=== PATIENT | female | born 1995 | race Caucasian/White ===

== ENCOUNTER 2022-05-20 20:21 | Outpatient (CLI) | payer OTHER, SELFPAY ==
[2022-05-20 20:54] VITALS: BP 120/57; PULSE 90; RESP 16; TEMP 37
== END 2022-05-20 21:20 | disposition home or self-care (01) ==
LOC: ANHOBOP 20:28 → ANHOBPP 20:28
PROVIDERS: PCP Pediatrics; Visit Provider Advanced Practice Midwife
DX: O42.913 Preterm premature rupture of membranes, unspecified as to length of time between rupture and onset of labor, third trimester (principal); Z3A.29 29 weeks gestation of pregnancy
CPT/HCPCS: 59025; 84112; 99199

== ENCOUNTER 2024-08-22 18:27 | Emergency (ER) | payer OTHER, SELFPAY ==
[2024-08-22 18:28] VITALS: BP 112/89; PULSE 73; RESP 16; TEMP 36.8; O2SAT 96
--- OUTSIDE RECORDS SUMMARY | 2024-08-22 18:29 | XMS_ITS | Clinical Summary ---
Author Organization [facility] [employer] Address [address] [place] [address] Care Team Providers Care Amusement Park Ride Mechanic Name Role Phone Unavailable Primary Care Provider Unavailabl e Source Comments [facility] [employer],non-owned Affiliates and Associated Physician Practices is amultiple site organization consisting of ambulatory clinics and hospital sitesin [place], [place], [place] and [place]. This disclosure is being madepursuant to the Care Everywhere program and may not contain all information available regarding this patient. Last updated 18.[facility] [employer] Allergies No known active allergies Medications * Be aware that medications may not be up to date on this document. Alwaysverify current medications with the patient. desmopressin (DDAVP) 0.2 MG tablet Take 0.2 mg by mouth daily. Active albuterol (PROVENTIL; VENTOLIN) 90 MCG/ACT inhaler Inhale 2 Puffs by mouth every 6 hours as needed. Active ondansetron (ZOFRAN) 4 MG tabletIndicatio ns:Nausea and/or Vomiting in Take 4 mg by mouth every 6 hours as needed for Nausea/Vomitin g Reasons: Nausea and Vomiting in Active famotidine (PEPCID) 10 MG tablet Take 10 mg by mouth once daily Active acetaminophen CR (TYLENOL ARTHRITIS PAIN) 650 MG tablet Take 650 mg by mouth every 8 hours as needed for Pain Active Vit-Fe Fumarate-FA ( VITAMIN) 28-0.8 MG tablet Take 1 tablet by mouth once daily Active Active Problems Problem Noted Date Diagnosed Date Uterine contractions 04/05/2021 Supervision of high-risk of young prim igravida 12/06/2017 Hyperlipidemia 11/30/2010 Asthma 11/30/2010 Sleep apnea 11/30/2010 Obesity, morbid 11/30/2010 Family History Medical History Relation Name Comments Sleep Apnea Brother Heart Failure Father Hypertension Father Renal Disease Father Anesthesia Reaction Mother Asthma Mother Atrial Fibrillation Mother Heart Failure Mother Sarcoidosis Mother Sleep Apnea Mother Diabetes Paternal Grandfather Diabetes Paternal Grandmother Hypertension Paternal Grandmother Bleeding Disorders Neg Hx Cancer - Breast Neg Hx Cancer - Uterine Neg Hx Childhood Hearing Disorder Neg Hx Other - Defects Neg Hx Phlebitis/Blood Clot Neg Hx Relation Name Status Comments Brother Father Mother Paternal Grandfather Paternal Grandmother Social History Tobacco Use Types Packs/Day Years Used Date Smoking Tobacco: Every Day Cigarettes 0.5 9 Smokeless Tobacco: Never Tobacco Cessation:Ready to Q uit: Yes; Counseling Given: No Comments:3 cig per day, hoping to quit Alcohol Use Standard Drinks/Week Comments Not Currently 0 (1 standard drink = 0.6 oz pur e alcohol) Comments No Sex and Gender Information Value Date Recorded Sex Assigned at Not on file Legal Sex Female 7:07 AM INTELLIGENCE OFFICER BASIC Gender Identity Not on file Sexual Orientation Not on file Last Filed Vital Signs Vital Sign Reading Time Taken Comments Blood Pressure 124/77 04/09/2021 8:15 AM INTELLIGENCE OFFICER BASIC Pulse 61 04/08/2021 11:46 PM INTELLIGENCE OFFICER BASIC Temperature 36.9 C (98.4 F) 04/09/2021 8:15 AM INTELLIGENCE OFFICER BASIC Respiratory Rate 18 04/09/2021 8:15 AM INTELLIGENCE OFFICER BASIC Oxygen Saturation 100% 04/08/2021 11:46 PM INTELLIGENCE OFFICER BASIC Inhaled Oxygen Concentration - - Weight 92 kg (202 lb 12.8 oz) 04/05/2021 10:40 P M INTELLIGENCE OFFICER BASIC Height 162.6 cm (5' 4 ) 04/05/2021 9:19 PM INTELLIGENCE OFFICER BASIC Body Mass Index 34.81 04/05/2021 9:19 PM INTELLIGENCE OFFICER BASIC Plan of Treatment Health Maintenance Due Date Last Done Comments PAP SMEAR 1995 HIV SCREENING 2010 DTAP/TDAP/TD VACCINES (1 - Tdap) 2014 HEPATITIS B VACCINE (1 of 3 - 19+ 3-dose series) 2014 PNEUMOCOCCAL VACCINE (1 of 2 - PCV) 2014 COVID-19 VACCINE (1 - 2023-2 5 season) 2024 DEPRESSION SCREENING 05/06/2024 INFLUENZA VACCINE (Season Ended) 2025 03/06/2016, 01/26/2015, 02/22/2014 ZOSTER VACCINE (1 of 2) 2045 HEPATITIS C SCREENING Completed 04/06/2021 HIB VACCINE Aged Out No longer eligi ble based on patient's age to complete this topic HPV VACCINE Aged Out No longer eligi ble based on patient's age to complete this topic MENINGOCOCCAL (Group B) VACCINE SHARED DECISION-MAKING Aged Out No longer eligible based on patient's age to complete this topic MENINGOCOCCAL GROUPS A/C/Y/W VACCINE Aged Out No longer eligible b ased on patient's age to complete this topic Procedures Procedure Name Priority Date/Time Associated Diagnosis Comments HEPATITIS SCREEN ACUTE Routine 04/06/2021 8:29 AM INTELLIGENCE OFFICER BASIC Nausea and vomiting of , antepartum Supervision of high-risk of young primigravida Transaminitis from Last 3 Months or Most Recently Relevant to Health Maintenance Results * HEPATITIS SCREEN ACUTE (04/06/2021 8:29 AM INTELLIGENCE OFFICER BASIC) HAV Antibody IgM Non Reactive Non Reactive 04/06/2021 10:16 AM INTELLIGENCE OFFICER BASIC [facility] HBsAg Non Reactive Non Reactive 04/06/2021 10:16 AM INTELLIGENCE OFFICER BASIC [facility] HBc Antibody IgM Non Reactive Non Reactive 04/06/2021 10:16 AM [facility] HCV Antibody Screen Non Reactive Non Reactive 04/06/2021 10:16 AM [facility] Blood BLOOD SPECIMEN / Unknown Lab Venipuncture / Unknown 04/06/2021 8:29 AM INTELLIGENCE OFFICER BASIC 04/06/2021 8:35 AM INTELLIGENCE OFFICER BASIC Narrative [facility] - 04/06/2021 10:16 AM INTELLIGENCE OFFICER BASIC Non Reactive - Antibodies to Hepatitis C virus (HCV) were not detected, result does not exclude early acute HCV infection. us Taylor Adan MD LAB - CHEMISTRY ORDERABLES Final Result [facility] [address] [place] [address] from Last 3 Months or Most Recently Relevant to Health Maintenance Insurance [employer] MEDICA[employer] [place] Advance Directives * Full Code (Latest Code Status on File) Date Activated Date Inactivated Comments 04/05/2021 10:14 PM 04/09/2021 12:37 PM
--- OUTSIDE RECORDS SUMMARY | 2024-08-22 18:29 | XMS_ITS | Continuity of Care Document ---
Author Organization [facility] Address [address] [place] [address] Phone Care Team Providers Care Tire Room Supervisor Name Role Phone Steele OD, Fernando Unavailable Unavailable Procedures Procedure Date Eye Exam & Treatment Refraction Advance Directives Directive Yes / No Effective Date File Name No Information Encounters Encounter Description Practice Location Reason(s) For Visit Diagnoses Date Provider Providers Copied on Encounter [facility], [address], [place], [place], [id number], [place] tel:[phone] SEC [facility] No Information 0-200 9 Steele OD Fernando. [address] , [address], [place], [address], [place]. tel:[phone] Family History Family Member Type Diagnosis Age At Onset No Information Payers Payer name Insurance type Covered democrat ID Authoriza tion(s) Medicaid [facility] [id number] Social History Type Description Quantity Date Captured Comments Sex Female Smoking Status No Information Chief Complaint And Reason For Visit No Information Reason For Referral Reason For Referral No Information History Of Present Illness Encounter Date Complaint History Of Prese nt Illness No Information Functional Status Date Functional Assessmen t No Information Instructions Date Instruction Additional Infor mation No Information Assessments Type Assessment Date No Information Patient Care Teams Name Effective Dates (start - stop) Status Members No Information
--- OUTSIDE RECORDS SUMMARY | 2024-08-22 18:29 | XMS_ITS | Referral Summary ---
Author Organization [facility] Address [address] [place] [address] Care Team Providers Care Cryptanalyst Name Role Phone Unknown, Notinfile Primary Care Provider Unavail able Allergies No known active allergies Medications escitalopram (LEXAPRO) 10 mg tabletIndicatio ns:Anxiety with Depression Take 1 tablet (10 mg total) by mouth daily 30 tablet 6 3 Active oxyCODONE (ROXICODONE) 5 mg immediate release tabletIndicatio ns:Pain Take 1 tablet (5 mg total) by mouth every 4 (four) hours as needed for pain 20 tablet 3 Active acetaminophen (TYLENOL) 325 mg tablet Take 2 tablets (650 mg total) by mouth every 6 (six) hours as needed for pain 90 tablet 3 Active docusate sodium (COLACE) 100 mg capsuleIndicati ons:constipatio n,Stool Softener Take 1 capsule (100 mg total) by mouth 2 (two) times a day as needed for constipation 60 capsule 3 Active ibuprofen (ADVIL,MOTRIN) 600 mg tabletIndicatio ns:Cramps Take 1 tablet (600 mg total) by mouth every 6 (six) hours as needed for pain 90 tablet 3 Active Active Problems Problem Noted Date Diagnosed Date care following vaginal delivery 06/27 Overview (06/29/2022): # ID: Afebrile. No signs/symptoms of infection. COVID-19 test not indicated. # Heme: EBL 200 mL. Hemodynamically stable. # CV/Pulm: 2 MR pressures >4h apart thereby meeting criteria for gHTN. No antihypertensives needed at this time, continue to monitor. Enrolled in home BPmonitoring. # GI/: Tolerating PO. Voiding spontaneously. # Pain: Controlled with above regimen. #MDD: Continue home lexapro 10mg daily # Post DVT prophylaxis: The patient has the following MAJOR risk factors none and the following MINOR risk factors BMI 30-39, multiple gestation and parity >/=3. enoxaparin 40 mg daily ordered for VTE prophylaxis. # MOC: s/p BTL # MOF: # Disposition: Desires discharge home today Risk of labor in third trimester 023 Depression affecting 02/22/2022 Overview (06/12/2022): History: Patient states she has a history of depression, anxiety, and was diagnosed with PTSD just prior to . She was about to start medication but then was told she could not with . She notes that her depression is interfering with her ability to interact with her family. Previously counseled Current regimen: 06/12/2022 Restarting lexapro 10 mg daily Plan: Referral today to [facility] therapy and psych to establish care Close f/u for the remainder of and Reviewed risks of pp depression History of liver disease 02/22/2022 Overview (05/17/2022): In G3 had elevated LFTs at 32 weeks when she presented with concern for labor (was stably dilated at 4 cm). She had a complete work-up, which was negative. Specifically, acetaminophen level < 3, bile acids, 3.1, negative microsomal antibody, negative mitochondrial M2 antibody, negative smooth muscle antibody, negative KENNY. Blood pressures normal range. RUQ ultrasound WNL. Liver enzymes peaked at 373/190 and downtrended. She was discharged from the hospital and per her report, she had complete resolution of LFTs and went on to have a term delivery. Previously counseled Plan: [x] Baseline CMP Marijuana use during 02/21/2022 Overview (05/17/2022): Previously counseled, encouraged cessation Dichorionic diamniotic twin in second trimester 02/20/2022 Overview (06/14/2022): Patient with an ultrasound from outside hospital at 15 weeks that identified di- di twins. Handheld ultrasound today demonstrated twin IUP with distinctive dividing membrane. Previously counseled Plan: [x] specialized anatomy- confirmed timmy twins [x] genetic testing- low risk NIPT [x] baseline labs and A1c- 24 hour urine 228 (referred to nephrology by primary OB but pt has not yet seen- encouraged to schedule) scanned into media - ASA until 36 weeks - serial growths - weekly NSTs at 36 weeks - Delivery by 38 weeks Supervision of high-risk , second trime ster 02/20/2022 Overview (06/29/2022): [x] Full MFM [x] Blue Team -- [facility] as of 06/05 email sent to financial - bnw Referring Provider: Filiberto Raphael [phone] [] [employer] or Medicare Insurance [x] Dating Criteria: LMP 10/24/21 with ALEX 07/31/22 [x] Labs: Rh [A+], Ab [negative], Rubella [immune], HIV [non-reactive], HepBSAg [negative], RPR [non-reactive], Hep C [non-reactive], Varicella [positive], GC/CT [negative/negative] [x] Genetic Screenin/28 NIPT negative, AFP negative, CF requested 05/17 [x] CBC/Hgb 11.6/34.3/plt 319 [x] UCx: 02/01/22 negative [x] Pap: 02/02/22 NILM; HPV negative [x] LD ASA (if indicated) starting at 12 weeks: [] EPDS [ ]; [facility] referral (if indicated) 2nd Tri Labs: [x] Anatomy ultrasound: complete x2 [x] CBC/1hr gtt at 24-28wks: CBC: 10.1/32.3/338, 1hr gtt: 118 - done 05/17, faxed to Ijeoma's office, asked MARCELL[facility] Campbell for pt to get ferritin at next visit with them in 2 weeks [x] Flu Shot (Jan-Apr): 02/22/2022 MM [x] Tdap (27-36wks): 05/17/2022 MM [] COVID Vaccine: 3rd Tri Labs: [] CBC/HIV/RPR: ordered for [facility] [x] GBS: Negative 06/26/2022 [x] testing: weekly at 36 weeks- discussed and ordered for weekly BPPs Counseling [x] MOD: desires vaginal delivery, currently vertex/vertex- will schedule IOL at 38 weeks - scheduled for 07/15 at 9am, letter sent 06/13 - bnw [x] Place of delivery: [facility], [facility] as of 06/05 per primary office [] Last clinic visit SVE: [] IOL start agent: [] Epidural: [] Consents signed: [x] MOC: desires BTL, papers signed 05/17/2022 s/p counseling [x] Method of feeding: likely formula but after counseling considering breast [x] Cloth Edge Singer: discussed [x] PP Depression Discussed: discussed Reports bilateral lower extremity swelling with pruritis- likely normal but plan for CMP and bile acids- ordered Immunizations Immunization Administration Dates Next Due Influenza, Quadrivalent, Annmarie l Culture-based MDCK, Preservative Free, Antibiotic Free, Intramuscular 02/22/2022 Tdap 05/17/2022 Social History Tobacco Use Types Packs/Day Years Used Date Smoking Tobacco: Some Days Cigarettes Tobacco Cessation:Ready to Q uit: Not Asked; Counseling Given: Not Answered Social Connection and Isolat ion Panel [NHANES] Answer Date Recorded In a typical week, how many times do you talk on the phone with family, friends, or neighbors? More than three times a week 06/29/2022 How often do you get togethe r with friends or relatives? More than three times a week 06/29/2022 How often do you attend chur or mandaeism services? Never 06/29/2022 Do you belong to any clubs o r organizations such as evangelical groups, unions, fraternal or athletic groups, or school groups? No 06/29/2022 How often do you attend meet ings of the clubs or organizations you belong to? Never 06/29/2022 Are you , , di vorced, , never , or living with a partner? Living with partner 06/29/2022 AUDIT-C Answer Date Recorded Frequency of Alcohol Consumption Not on file 2022 Q2: How many drinks containi ng alcohol do you have on a typical day when you are drinking? Patient does not drink Frequency of Binge Drinking Not on file 10/2022 Overall Financial Resource Strain (CARDIA) Answe r Date Recorded How hard is it for you to pa y for the very basics like food, housing, medical care, and heating? Not very hard 06/29/2022 Hunger Vital Sign Answer Date Recorded Within the past 12 months, y ou worried that your food would run out before you got the money to buy more. Never true 06/29/19 23 Within the past 12 months, t he food you bought just didn't last and you didn't have money to get more. Never true 06/29/2022 PRAPARE - Transportation Answer Date Re corded In the past 12 months, has l ack of transportation kept you from medical appointments or from getting medications? Yes 06/07 In the past 12 months, has l ack of transportation kept you from meetings, work, or from getting things needed for daily living? No 06/29/2022 Housing Stability Vital Sign Answer Adam e Recorded In the last 12 months, was t here a time when you were not able to pay the mortgage or rent on time? No 06/29/2022 In the last 12 months, how many places have you lived? 0 06/29/2022 In the last 12 months, was t here a time when you did not have a steady place to sleep or slept in a halfway (including now)? No 06/29/2022 [place] Depression Scale Answer Date Recorded [place] Depression Scale Total 20 07/30/2022 The thought of harming myself has occurred to me . Never 07/30/2022 Personal Safety Answer Date Recorded Getting School Help Needed Denies 05/05 Comments No Sex and Gender Information Value Date Recorded Sex Assigned at Not on file Legal Sex Female 7:33 PM MIDLEVEL PROVIDER Gender Identity Female 06/07/2022 3:57 PM MIDLEVEL PROVIDER Sexual Orientation Bisexual 06/07/2022 3: 57 PM MIDLEVEL PROVIDER Last Filed Vital Signs Vital Sign Reading Time Taken Comments Blood Pressure 128/55 06/29/2022 10:55 AM MIDLEVEL PROVIDER Pulse 50 06/29/2022 7:45 AM MIDLEVEL PROVIDER Temperature 36.5 C (97.7 F) 06/29/2022 7:45 AM MIDLEVEL PROVIDER Respiratory Rate 16 06/29/2022 7:45 AM MIDLEVEL PROVIDER Oxygen Saturation 90% 06/29/2022 7:45 AM MIDLEVEL PROVIDER Inhaled Oxygen Concentration - - Weight 103.4 kg (228 lb) 06/26/2022 7:15 PM MIDLEVEL PROVIDER Height 165.1 cm (5' 5 ) 06/26/2022 7:15 PM MIDLEVEL PROVIDER Body Mass Index 37.94 06/26/2022 7:15 PM MIDLEVEL PROVIDER Plan of Treatment Not on file Insurance Advance Directives For more information, please contact: [phone] * Full Code (Latest Code Status on File) Date Activated Date Inactivated Comments 06/27/2022 1:13 PM 06/29/2022 5:12 PM * Full Code Date Activated Date Inactivated Comments 06/26/2022 6:40 PM 06/27/2022 1:13 PM Care Teams Cryptanalyst Relationship Specialty Start Date End Date Unknown, Notinfile PCP - General 06/05/22
--- OUTSIDE RECORDS SUMMARY | 2024-08-22 18:29 | XMS_ITS | Clinical Summary ---
Author Organization [facility] Address [address] [place] [address] Care Team Providers Care Mud Jack Nozzleman Name Role Phone Unknown, Notinfile Primary Care [...] financial - bnw Referring Provider: Filiberto Raphael [phone] [] [place] or Medicare Insurance [x] Dating Criteria: LMP [...] formula but after counseling considering breast [x] Unix Administrator: discussed [x] PP Depression Discussed: discussed Reports [...] How often do you attend chur or mandaen services? Never 06/29/2022 Do you belong to any clubs o r organizations such as faith groups, unions, fraternal or athletic groups, or [...] place to sleep or slept in a long-term (including now)? No 06/29/2022 Danube Depression Scale Answer Date Recorded [place] Depression Scale Total 20 07/30/2022 The thought of harming myself has occurred to me . Never 07/30/2022 Personal Safety Answer Date Recorded Getting School Help Needed Denies 05/05 Comments No Sex and Gender Information Value Date Recorded Sex Assigned at Not on file Legal Sex Female 7:33 PM SALES ROUTE DRIVER Gender Identity Female 06/07/2022 3:57 PM SALES ROUTE DRIVER Sexual Orientation Bisexual 06/07/2022 3: 57 PM SALES ROUTE DRIVER Obstetrics History Para Term AB IAB SAB Ectopic Multiple Livin g Live Births 4 4 3 1 1 5 2 Date Outcome GA Total Labor Labor/2nd/3rd Weight Sex Type Anes PTL Saranya A1 A5 Name Clin 2017 Term Vag-S pont 2020 Term Vag-S pont 2021 Term Vag-S pont 2022 35w 3d 17h 55m 17h 37m/0h 14m/0h 04m 2.43 kg (5 lb 5.7 oz) F Vag-S pont Epidur al Y Livin g 5 6 SCARB ROUGH ,ONEG IRLNMani Larsen, Maurilio Lambert MD Complications:None Delivery Location:[facility] ([facility]) 2022 35w 3d 17h 55m 17h 37m/0h 16m/0h 02m 2.16 kg (4 lb 12.2 oz) M Vag-S pont Epidur al Y Livin g 5 7 SCARB ROUGH ,TWOB OSAMRAIK DAVID Larsen, Maurilio Lambert MD Complications:None Delivery Location:[facility] ([facility]) Last Filed Vital Signs Vital Sign Reading Time Taken Comments Blood Pressure 128/55 06/29/2022 10:55 AM SALES ROUTE DRIVER Pulse 50 06/29/2022 7:45 AM SALES ROUTE DRIVER Temperature 36.5 C (97.7 F) 06/29/2022 7:45 AM SALES ROUTE DRIVER Respiratory Rate 16 06/29/2022 7:45 AM SALES ROUTE DRIVER Oxygen Saturation 90% 06/29/2022 7:45 AM SALES ROUTE DRIVER Inhaled Oxygen Concentration - - Weight 103.4 kg (228 lb) 06/26/2022 7:15 PM SALES ROUTE DRIVER Height 165.1 cm (5' 5 ) 06/26/2022 7:15 PM SALES ROUTE DRIVER Body Mass Index 37.94 06/26/2022 7:15 PM SALES ROUTE DRIVER Plan of Treatment Health Maintenance Due Date Last Done Comments Cervical Cancer Screening 1995 Hepatitis C Screening 1995 HPV Vaccines (2 - 2-dose series) 03/10/2008 09/08/19 08 Regular Well Visit/Exam 18-64 2013 Pneumococcal vaccine <65 (1 of 2 - PCV) 2014 Depression Screening 07/31/2023 07/30/2022 Influenza Vaccine (#1) 2024 2, 03/06/2016, 01/26/2015, Additional history exists DTaP/Tdap/Td Vaccine (8 - Td or Tdap) 05/17/2032 05/17/2022, 06/22/2020, 01/26/2015, Additional history exists Hepatitis B Screening Completed 01/13/1996 , 1995, 1995 Varicella Vaccines Completed 02/19/2006, 07/16/1996 Insurance [facility] Advance Directives For more information, please contact: [phone] * Full Code (Latest Code Status on File) Date Activated Date Inactivated Comments 06/27/2022 1:13 PM 06/29/2022 5:12 PM * Full Code Date Activated Date Inactivated Comments 06/26/2022 6:40 PM 06/27/2022 1:13 PM Care Teams Mud Jack Nozzleman Relationship Specialty Start Date End Date Unknown, Notinfile PCP - General 06/05/22
--- OUTSIDE RECORDS SUMMARY | 2024-08-22 22:13 | XMS_ITS | Continuity of Care Document ---
Author Organization formerly [facility] Address [address] [facility] [address] [place] [address] Phone Care Team Providers Care Family Services Manager Name Role Phone Steele OD, Fernando Unavailable Unavailable Procedures Procedure Date Eye Exam & Treatment Refraction Advance Directives Directive Yes / No Effective Date File Name No Information Encounters Encounter Description Practice Location Reason(s) For Visit Diagnoses Date Provider Providers Copied on Encounter [facility], [address], [place], [place], [id number], [place] tel:[phone] SEC [facility] No Information 0-200 9 Steele OD Fernando. [address] , [address], [place], [address], [place]. tel:[phone] Family History Family Member Type Diagnosis Age At Onset No Information Payers Payer name Insurance type Covered constitution party ID Authoriza tion(s) Medicaid [facility] [id number] Social History Type Description Quantity Date Captured [...]
--- OUTSIDE RECORDS SUMMARY | 2024-08-22 22:13 | XMS_ITS | Clinical Summary ---
Author Organization [facility] Address [address] [place] [address] Care Team Providers Care Livestock Slaughterer Name Role Phone Unavailable Primary Care Provider Unavailabl e Source Comments [facility],non-owned Affiliates and Associated Physician Practices is amultiple site organization consisting of ambulatory clinics and hospital sitesin [place], [place], [place] and [place]. This disclosure is being madepursuant to the Care Everywhere program and may not contain all information available regarding this patient. Last updated 18.[facility] Allergies No known active allergies Medications * [...] on file Legal Sex Female 7:07 AM ALARM TECHNICIAN Gender Identity Not on file Sexual Orientation Not on file Last Filed Vital Signs Vital Sign Reading Time Taken Comments Blood Pressure 124/77 04/09/2021 8:15 AM ALARM TECHNICIAN Pulse 61 04/08/2021 11:46 PM ALARM TECHNICIAN Temperature 36.9 C (98.4 F) 04/09/2021 8:15 AM ALARM TECHNICIAN Respiratory Rate 18 04/09/2021 8:15 AM ALARM TECHNICIAN Oxygen Saturation 100% 04/08/2021 11:46 PM ALARM TECHNICIAN Inhaled Oxygen Concentration - - Weight 92 kg (202 lb 12.8 oz) 04/05/2021 10:40 P M ALARM TECHNICIAN Height 162.6 cm (5' 4 ) 04/05/2021 9:19 PM ALARM TECHNICIAN Body Mass Index 34.81 04/05/2021 9:19 PM ALARM TECHNICIAN Plan of Treatment Health Maintenance Due Date [...] HEPATITIS SCREEN ACUTE Routine 04/06/2021 8:29 AM ALARM TECHNICIAN Nausea and vomiting of , antepartum Supervision of high-risk of young primigravida Transaminitis from Last 3 Months or Most Recently Relevant to Health Maintenance Results * HEPATITIS SCREEN ACUTE (04/06/2021 8:29 AM ALARM TECHNICIAN) HAV Antibody IgM Non Reactive Non Reactive 04/06/2021 10:16 AM ALARM TECHNICIAN [facility] HBsAg Non Reactive Non Reactive 04/06/2021 10:16 AM ALARM TECHNICIAN [facility] HBc Antibody IgM Non Reactive Non Reactive 04/06/2021 10:16 AM [facility] HCV Antibody Screen Non Reactive Non Reactive 04/06/2021 10:16 AM [facility] Blood BLOOD SPECIMEN / Unknown Lab Venipuncture / Unknown 04/06/2021 8:29 AM ALARM TECHNICIAN 04/06/2021 8:35 AM ALARM TECHNICIAN Narrative [facility] - 04/06/2021 10:16 AM ALARM TECHNICIAN Non Reactive - Antibodies to Hepatitis C virus (HCV) were not detected, result does not exclude early acute HCV infection. us Taylor Adan MD LAB - CHEMISTRY ORDERABLES Final Result [facility] [address] [place] [address] from Last 3 Months or Most Recently Relevant to Health Maintenance Insurance [employer] [facility] [place] Advance Directives * Full Code (Latest Code Status on File) Date Activated Date Inactivated Comments 04/05/2021 10:14 PM 04/09/2021 12:37 PM
--- OUTSIDE RECORDS SUMMARY | 2024-08-22 22:13 | XMS_ITS | Clinical Summary ---
Author Organization [facility] Address [address] [place] [phone] Care Team Providers Care Segregator Name Role Phone Unknown, Notinfile Primary Care [...] financial - bnw Referring Provider: Filiberto Raphael [phone] [] [employer] or Medicare Insurance [x] Dating Criteria: LMP [...] formula but after counseling considering breast [x] Mailing Jogger: discussed [x] PP Depression Discussed: discussed Reports [...] How often do you attend chur or gnosticist services? Never 06/29/2022 Do you belong to any clubs o r organizations such as mu-ism groups, unions, fraternal or athletic groups, or [...] place to sleep or slept in a residential (including now)? No 06/29/2022 [place] Depression Scale Answer Date Recorded [place] Depression Scale Total 20 07/30/2022 The thought of harming myself has occurred to me . Never 07/30/2022 Personal Safety Answer Date Recorded Getting School Help Needed Denies 05/05 Comments No Sex and Gender Information Value Date Recorded Sex Assigned at Not on file Legal Sex Female 7:33 PM MOLDER MEAT Gender Identity Female 06/07/2022 3:57 PM MOLDER MEAT Sexual Orientation Bisexual 06/07/2022 3: 57 PM MOLDER MEAT Obstetrics History Para Term AB IAB SAB [...] IRLNMani Larsen, Maurilio Lambert MD Complications:None Delivery Location:[facility] ([facility]) 2022 35w 3d 17h 55m 17h 37m/0h 16m/0h 02m 2.16 kg (4 lb 12.2 oz) M Vag-S pont Epidur al Y Livin g 5 7 SC[address] ROUGH ,TWOB OSAMRAIK DAVID Larsen, Maurilio Lambert MD Complications:None Delivery Location:[facility] ([facility]) Last Filed Vital Signs Vital Sign Reading Time Taken Comments Blood Pressure 128/55 06/29/2022 10:55 AM MOLDER MEAT Pulse 50 06/29/2022 7:45 AM MOLDER MEAT Temperature 36.5 C (97.7 F) 06/29/2022 7:45 AM MOLDER MEAT Respiratory Rate 16 06/29/2022 7:45 AM MOLDER MEAT Oxygen Saturation 90% 06/29/2022 7:45 AM MOLDER MEAT Inhaled Oxygen Concentration - - Weight 103.4 kg (228 lb) 06/26/2022 7:15 PM MOLDER MEAT Height 165.1 cm (5' 5 ) 06/26/2022 7:15 PM MOLDER MEAT Body Mass Index 37.94 06/26/2022 7:15 PM MOLDER MEAT Plan of Treatment Health Maintenance Due Date [...] 1995 Varicella Vaccines Completed 02/19/2006, 07/16/1996 Insurance [facility] Advance Directives For more information, please contact: [phone] * Full Code (Latest Code Status on File) Date Activated Date Inactivated Comments 06/27/2022 1:13 PM 06/29/2022 5:12 PM * Full Code Date Activated Date Inactivated Comments 06/26/2022 6:40 PM 06/27/2022 1:13 PM Care Teams Segregator Relationship Specialty Start Date End Date Unknown, Notinfile PCP - General 06/05/22
--- OUTSIDE RECORDS SUMMARY | 2024-08-22 22:13 | XMS_ITS | Referral Summary ---
Author Organization [facility] Address [address] [place] [phone] Care Team Providers Care Dredge Pipe Operator Name Role Phone Unknown, Notinfile Primary Care [...] financial - bnw Referring Provider: Filiberto Raphael [phone] [] [employer] or Medicare Insurance [x] Dating Criteria: LMP [...] formula but after counseling considering breast [x] Abrasive Grinder: discussed [x] PP Depression Discussed: discussed Reports [...] How often do you attend chur or scientology services? Never 06/29/2022 Do you belong to any clubs o r organizations such as zoroastrianism groups, unions, fraternal or athletic groups, or [...] place to sleep or slept in a long term (including now)? No 06/29/2022 [place] Depression Scale Answer Date Recorded [place] Depression Scale Total 20 07/30/2022 The thought of harming myself has occurred to me . Never 07/30/2022 Personal Safety Answer Date Recorded Getting School Help Needed Denies 05/05 Comments No Sex and Gender Information Value Date Recorded Sex Assigned at Not on file Legal Sex Female 7:33 PM ABRASIVE GRINDER Gender Identity Female 06/07/2022 3:57 PM ABRASIVE GRINDER Sexual Orientation Bisexual 06/07/2022 3: 57 PM ABRASIVE GRINDER Last Filed Vital Signs Vital Sign Reading Time Taken Comments Blood Pressure 128/55 06/29/2022 10:55 AM ABRASIVE GRINDER Pulse 50 06/29/2022 7:45 AM ABRASIVE GRINDER Temperature 36.5 C (97.7 F) 06/29/2022 7:45 AM ABRASIVE GRINDER Respiratory Rate 16 06/29/2022 7:45 AM ABRASIVE GRINDER Oxygen Saturation 90% 06/29/2022 7:45 AM ABRASIVE GRINDER Inhaled Oxygen Concentration - - Weight 103.4 kg (228 lb) 06/26/2022 7:15 PM ABRASIVE GRINDER Height 165.1 cm (5' 5 ) 06/26/2022 7:15 PM ABRASIVE GRINDER Body Mass Index 37.94 06/26/2022 7:15 PM ABRASIVE GRINDER Plan of Treatment Not on file Insurance Advance Directives For more information, please contact: [phone] * Full Code (Latest Code Status on File) Date Activated Date Inactivated Comments 06/27/2022 1:13 PM 06/29/2022 5:12 PM * Full Code Date Activated Date Inactivated Comments 06/26/2022 6:40 PM 06/27/2022 1:13 PM Care Teams Dredge Pipe Operator Relationship Specialty Start Date End Date Unknown, Notinfile PCP - General 06/05/22
--- NOTE | 2024-08-22 22:38 | ED.SKABFB ---
HPI - Skin/Abscess/Foreign Bdy General Chief complaint: Skin/Abscess/Foreign Body Stated complaint: right hand swelling Time Seen by Provider: 08/22/24 22:04 Source: patient Mode of arrival: ambulatory Limitations: no limitations History of Present Illness HPI narrative: Patient is a 29-year-old female who presents the ED with report of bilateral hand infection. Patient reports she had an allergic reaction to soap at work a few weeks ago. She was seen at an urgent care and prescribed a topical steroid cream. She states she use this twice daily for 1 week. She began having worsening redness, swelling of bilateral hands, having peeling of her hands. She was seen in the ED here on 08/14 advised to use Aquaphor. She states the feeling has since persisted. States she is not having a foul odor from her hands. Denies fevers. No previous history of skin disorders. Has been trying to get into a administrative appeals tribunal member, but having difficulty finding 1 that accepts her insurance. Related Data Home Medications ?Medication ?Instructions ?Recorded ?Confirmed ?Last Taken ?Type vit#24-iron amino acid 1 tablet PO DAILY 05/20/22 05/20/22 Unknown History chelat-folic acid 30 mg-975 mcg tablet Allergies Allergy/AdvReac Type Severity Reaction Status Date / Time No Known Allergies Allergy Mild Unverified 05/15/08 21:49 Review of Systems Review of Systems: All systems reviewed & are unremarkable except as noted in HPI. All systems reviewed & are unremarkable except as noted in HPI and below Exam Narrative: GENERAL: Well appearing, well-nourished, non-toxic, in no acute distress. HEAD: Normocephalic, atraumatic. RESPIRATORY: Airway patent, respirations nonlabored. CARDIOVASCULAR: Regular rate and rhythm. Radial pulses strong and intact. MUSCULOSKELETAL: Moves all extremities. Bilateral hands to distal wrists on palmar and dorsal surfaces diffusely erythematous, inflamed, with dry cracking, scaling skin. Areas on palms with thick moist patches of blanched skin peeling and macerated skin tissue. No vesicular lesions. Slight foul odor noted. No purulent drainage. No abscess. SKIN: Warm, dry, normal color. NEURO: A&O X3. Speech clear. Sensation intact throughout hands. Capillary refill intact. PSYCHIATRIC: Appropriate mood and affect. Normal interaction. Course Vital Signs Vital signs: Vital Signs Temperature 98.2 F 08/22/24 18:28 Pulse Rate 73 08/22/24 18:28 Respiratory Rate 16 08/22/24 18:28 Blood Pressure 112/89 08/22/24 18:28 Pulse Oximetry 96 08/22/24 18:28 Temperature 98.4 F 08/22/24 22:48 Pulse Rate 80 08/22/24 22:48 Respiratory Rate 16 08/22/24 22:48 Blood Pressure 122/78 08/22/24 22:48 Pulse Oximetry 100 08/22/24 22:48 MDM - Skin/Abscess/Foreign Bdy MDM Narrative Medical decision making narrative: Patient presented to ED with erythema, dry scaling skin, skin peeling to bilateral hands. Vital signs stable. Patient afebrile. Neurovascularly intact. Symptoms most consistent with contact dermatitis versus topical steroid withdrawal. Patient had previously been prescribed a topical steroid that she used twice daily for 1 week. Advised patient to continue lubrication, Aquaphor, warm water soaks. Will prescribe Keflex for likely superimposed cellulitis. Advised close follow-up with Dermatology for further evaluation. Given return precautions. Discharged in stable condition. Medical Records Attestation: I reviewed the patient's medical records. Discharge Plan Discharge Clinical Impression: Contact dermatitis Qualifiers: Contact dermatitis type: unspecified Contact dermatitis trigger: unspecified trigger Qualified Code(s): L25.9 - Unspecified contact dermatitis, unspecified cause Cellulitis Qualifiers: Site of cellulitis: extremity Site of cellulitis of extremity: upper extremity Laterality: unspecified laterality Qualified Code(s): L03.119 - Cellulitis of unspecified part of limb Patient Disposition: Home Condition: Stable Instructions: Antibiotic Form, Topical Barrier Preparations (On the skin), Contact Dermatitis (ED), Cellulitis (ED) Additional Instructions: Take antibiotics as prescribed. Keep hands very clean, wash frequently with soap and water. You may continue to use Aquaphor to keep hands moist and prevent drying/cracking of skin. You may also try warm water soaks. Continue Tylenol and ibuprofen as needed for pain. Follow-up with Dermatology and/or primary care doctor for further evaluation. Return to the ED for new or worsening concerns. Patient Language: Zambian Prescriptions: New cephalexin 500 mg capsule 500 mg PO Q6H 7 Days Qty: 28 0RF No Action Complete 30-975 mg-mcg Tablet 1 tablet PO DAILY Follow-up/Referrals: UNKNOWN,DOCTOR [Primary Care Provider] - Stand Alone Forms: Work/School Release IP Time of Disposition: 22:45
[2024-08-22] MEDS: CEPHALEXIN 500 MG CAPSULE PO (22:42)
[2024-08-22 22:48] VITALS: BP 122/78; PULSE 80; RESP 16; TEMP 36.9; O2SAT 100
== END 2024-08-22 22:50 | disposition home or self-care (01) ==
PROVIDERS: Emergency Provider Physician Assistant
DX: L25.9 Unspecified contact dermatitis, unspecified cause (principal); L03.114 Cellulitis of left upper limb; L03.113 Cellulitis of right upper limb
CPT/HCPCS: 99283; A9270